=== PATIENT | female | born 2000 | race African-American/Black ===

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

== ENCOUNTER 2020-03-27 14:00 | Observation (INO) | payer OTHER ==
[2017-06-22 15:01] VITALS: BP 114/76
[~2020-03-27] VITALS: Ht 172.7 cm; Wt 77.9 kg
[~2020-03-27 14:00] MED LIST changes: +CEPH-264 PO
[2020-03-27] MEDS ORDERED: IV RINGERS,LACTATED 1000ML 1,000 ML IV SCH (14:30)
--- NOTE | 2020-03-27 16:18 | RAD ---
EXAM: biophysical profile. HISTORY: PAULA and size assessment. TECHNIQUE: Sonographic imaging of a gravid uterus was performed. COMPARISON: None. FINDINGS: There is a single intrauterine fetus in cephalic presentation with a normal heart rate of 1 43 bpm. There is normal body motion, breathing motion and tone and there is a normal amni otic fluid index of 10.3 cm. This corresponds with a biophysical profile of 8/8. The cervix is closed and measures 3.2 cm in length. The anatomy is not formally assessed on this exam. The estimate d gestational age based on LMP is 37 weeks and 6 days. IMPRESSION: 1. Single intrauterine fetus in cephalic presentation with a normal heart rate and normal biophysical profile 8/8. 2. Estimated gestational age based on LMP of 37 weeks and 6 days. The anatomy is not formally a ssessed on this exam. Electronically signed by: Karla Sepulveda MD (03/27/2020 4:15 PM) [id number]
== END 2020-03-27 16:36 | disposition home or self-care (01) ==
LOC: 3 SO LND 14:00
PROVIDERS: ADMIT Obstetrics & Gynecology; ATTEND Obstetrics & Gynecology
DX: Z34.83 Encounter for supervision of other normal pregnancy, third trimester (principal); Z3A.40 40 weeks gestation of pregnancy
CPT/HCPCS: 59025; 76819; G0378; G0379

== ENCOUNTER 2020-04-02 19:09 | Inpatient (IN) | payer OTHER ==
[~2020-04-02] VITALS: Ht 172.7 cm; Wt 77.3 kg
[2020-04-02] MEDS ORDERED: CITRIC ACID/SODIUM CITRATE 30 ML SOLUTION. PO PRN (19:30)
[2020-04-02] MEDS ORDERED: IV RINGERS,LACTATED 1000ML 1,000 ML IV SCH (19:30)
[2020-04-02] MEDS ORDERED: TERBUTALINE 1 MG/ML VIAL. SQ PRN (19:30)
[2020-04-02] MEDS ORDERED: DINOPROSTONE 10 MG SUPP.VAG VG ONE (19:30)
[2020-04-02] MEDS ORDERED: fentaNYL PF VIAL 100 MCG/2 ML VIAL IVP PRN (19:30)
[2020-04-02] MEDS ORDERED: ACETAMINOPHEN 325 MG TABLET. PO PRN (19:30)
[2020-04-02] MEDS ORDERED: IBUPROFEN 400 MG TABLET. PO PRN (19:30)
[2020-04-02] MEDS ORDERED: LIDOCAINE 1% PF 30 ML VIAL. INJ PRN (19:30)
[2020-04-02] MEDS ORDERED: ONDANSETRON PF 4 MG/2 ML VIAL. IVP PRN (19:30)
[2020-04-02] MEDS ORDERED: OXYTOCIN 30 UNIT/500 ML PREMIX 500 ML IV PRN (19:30)
[2020-04-02] MEDS ORDERED: 0.9 % SODIUM CHLORIDE 10 ML DISP.SYRIN. IV PRN (19:30)
[2020-04-02 19:45] LABS: BILIRUBIN,URINE NEGATIVE (NEG); CLARITY,URINE CLEAR; COLOR,URINE YELLOW; NITRITE,URINE NEGATIVE (NEG); PH,URINE 7.5 (<5.0-8.0); PROTEIN,URINE NEGATIVE (NEG-TRACE); UROBILINOGEN,URINE 0.2 mg/dL (0.2 mg/dL)
[2020-04-02 20:17] LABS: BASO # 0.1 x10^3/uL (0.0-0.2); BASO % 1 % (0-3); EOS # 0.1 x10^3/uL (0.0-0.7); EOS % 1 % (0-3); HEMATOCRIT 32.6 % (36.0-47.0); HEMOGLOBIN 10.7 g/dL (12.0-15.5); LYMPH # 1.8 x10^3/uL (1.0-4.8); LYMPH % 16 % (24-48); MEAN CORPUSCULAR HEMOGLOBIN 27 pg (25-35); MEAN CORPUSCULAR HGB CONC 33 g/dL (31-37); MEAN CORPUSCULAR VOLUME 83 fL (79-100); MONO # 0.9 x10^3/uL (0.0-1.1); MONO % 8 % (0-9); NEUT # 8.6 x10^3/uL (1.8-7.7); NEUT % 75 % (31-73); PLATELET COUNT 224 x10^3/uL (140-400); RED BLOOD COUNT 3.96 x10^6/uL (3.50-5.40); RED CELL DISTRIBUTION WIDTH 16.6 % (11.5-14.5); WHITE BLOOD COUNT 11.4 x10^3/uL (4.0-11.0)
[2020-04-02 20:18] LABS: BACTERIA,URINE FEW /HPF (0-FEW); RBC,URINE RARE /HPF (0-2)
[2020-04-03] MEDS: fentaNYL PF VIAL 100 MCG/2 ML VIAL IVP PRN ×2 (03:29→05:09)
[2020-04-03] MEDS ORDERED: OXYTOCIN PREMIX 30 UNIT/500 ML NS BAG. IV ONE (06:00)
[2020-04-03] MEDS ORDERED: ROPIVacaine 0.2% PF 10 ML VIAL. ONE ×2 (06:20→06:30)
[2020-04-03] MEDS ORDERED: L&D EPIDURAL SYRINGE 50 ML ONE (06:20)
[2020-04-03] MEDS ORDERED: L&D EPIDURAL 50 ML SYRINGE. ONE (06:30)
--- NOTE | 2020-04-03 06:55 | PDOC1 ---
OB - History Hx of Present Care: Good Care Ultrasounds: Normal mid trimester US Obstetrical Complications: None Medical Complications: None Past Family/Social History * Past Medical, Surgical, Family and Obstetric Histories reviewed from chart. Rubella: Immune RPR/VDRL: Negative GBS Status: Positive HBsAG: Negative OB - Chief Complaint & HPI Date of Admission: Date of Admission: Apr 02, 2020 at 19:09 Chief Complaint/History : 2 Para: 1 EGA: 41 Reason for admission: induction of labor Indication for induction: post dates Admission Nurse Assessment Rev: Yes OB - Admission Exam Physical Exam Vitals: VS - Last 72 Hours, by Label Date Time Temp Pulse Resp B/P (MAP) Pulse Ox O2 Delivery O2 Flow Rate FiO2 04/03/20 05:09 20 Room Air 04/03/20 03:29 22 Room Air HEENT: Normal Heart: Regular Rate Lungs: Clear, Equal Abdomen: Gravid, Non tender, Soft Extremities: Edema Reflexes: Normal Effacement: 75% Membranes: Intact Amniotic Fluid: Meconium Heart Rate: Normal Accelerations: Accelerations Present Short Term Variability: Present Contractions on Admission: None Intensity: Mild Text A: 41 wks IUP GBS positive IOL post dates P: Admit IOL cervidil, then pitocin in am. Start Pen G prophylaxis with pitocin. SUSY BHATT Jr, MD Apr 03, 2020 06:55
[2020-04-03] MEDS ORDERED: PENICILLIN G K 5,000,000 UNIT in IV DEXTROSE 5% 100ML 100 ML IV ONE (07:00)
[2020-04-03] MEDS ORDERED: OXYTOCIN 30 UNIT/500 ML PREMIX 500 ML IV PRN ×2 (07:00→09:15)
--- NOTE | 2020-04-03 09:02 | PDOC ---
VAGINAL DELIVERY DATE DATE: 04/03/20 TIME: 09:01 : 2 Para: 2 EGA: 41 VAGINAL DELIVERY: VTX VACCUM ASSISTED: No PLACENTA: Spontaneous 8/9 SEX: Male WEIGHT Weight [ pending ] Nuchal Cord: No Amniotic Fluid: Clear PAIN: Epidural EPISIOTOMY: No EXTENSION: No EBL 300 ml COMPLICATIONS none CONDITION pt. stable Signs of Intrauterine Infectio: None Shoulder Dystocia: No SUSY BHATT Jr, MD Apr 03, 2020 09:02
[2020-04-03] MEDS ORDERED: ZOLPIDEM 5 MG TABLET. PO PRN (09:15)
[2020-04-03] MEDS ORDERED: oxyCODONE/APAP 5/325 1 TAB TABLET PO PRN (09:15)
[2020-04-03] MEDS ORDERED: MAG HYDROX/ALUMINUM HYD/SIMETH 30 ML ORAL.SUSP PO PRN (09:15)
[2020-04-03] MEDS ORDERED: diphenhydrAMINE HCL 25 MG CAPSULE PO PRN (09:15)
[2020-04-03] MEDS ORDERED: TDaP (Adacel) per PROTOCOL. MC PRN (09:15)
[2020-04-03] MEDS ORDERED: BENZOCAINE 20% TOPICAL AEROSOL SPRAY 57GM CAN. TP PRN (09:15)
[2020-04-03] MEDS ORDERED: HYDROCORTISONE 1% TOPICAL OINTMENT 30GM TUBE. TP PRN (09:15)
[2020-04-03] MEDS ORDERED: MMR per PROTOCOL. MC PRN (09:15)
[2020-04-03] MEDS ORDERED: PHENYLEPH/MINERAL OIL/PETROLAT RECTAL OINTMENT TUBE. RC PRN (09:15)
[2020-04-03] MEDS ORDERED: ACETAMINOPHEN 325 MG TABLET. PO PRN (09:15)
[2020-04-03] MEDS ORDERED: SIMETHICONE 80 MG TAB.CHEW PO PRN (09:15)
[2020-04-03] MEDS ORDERED: 0.9 % SODIUM CHLORIDE 10 ML DISP.SYRIN. IV PRN (09:15)
[2020-04-03] MEDS ORDERED: MAGNESIUM HYDROXIDE 2,400 MG/30 ML ORAL.SUSP. PO PRN (09:15)
[2020-04-03] MEDS: IBUPROFEN 400 MG TABLET. PO PRN ×2 (10:07→17:11)
[2020-04-03] MEDS ORDERED: miSOPROStol 200 MCG TABLET. ONE ×2 (10:21→10:30)
[2020-04-03] MEDS ORDERED: PENICILLIN G K 2,500,000 UNIT in IV DEXTROSE 5% 50 ML IV SCH (11:00)
[2020-04-03 11:09] LABS: HEMATOCRIT 33.7 % (36.0-47.0); HEMOGLOBIN 11.2 g/dL (12.0-15.5); RED BLOOD COUNT 4.05 x10^6/uL (3.50-5.40); RED CELL DISTRIBUTION WIDTH 16.6 % (11.5-14.5); WHITE BLOOD COUNT 15.2 x10^3/uL (4.0-11.0)
[2020-04-03 15:00] VITALS: BP 125/70
[2020-04-03 18:11] VITALS: BP 119/59
[2020-04-03] MEDS: DOCUSATE SODIUM 100 MG CAPSULE. PO PRN (22:35)
[2020-04-03 22:48] VITALS: BP 102/55
[2020-04-04 02:51] VITALS: BP 118/73
[2020-04-04 06:10] VITALS: BP 97/48
[2020-04-04 06:54] LABS: BASO % 0 % (0-3); EOS % 1 % (0-3); HEMATOCRIT 31.7 % (36.0-47.0); HEMOGLOBIN 10.4 g/dL (12.0-15.5); LYMPH # 1.9 x10^3/uL (1.0-4.8); LYMPH % 19 % (24-48); MEAN CORPUSCULAR HEMOGLOBIN 27 pg (25-35); MEAN CORPUSCULAR HGB CONC 33 g/dL (31-37); MEAN CORPUSCULAR VOLUME 83 fL (79-100); MONO # 0.6 x10^3/uL (0.0-1.1); MONO % 6 % (0-9); NEUT # 7.1 x10^3/uL (1.8-7.7); NEUT % 74 % (31-73); PLATELET COUNT 205 x10^3/uL (140-400); RED BLOOD COUNT 3.84 x10^6/uL (3.50-5.40); RED CELL DISTRIBUTION WIDTH 16.7 % (11.5-14.5); WHITE BLOOD COUNT 9.7 x10^3/uL (4.0-11.0)
[2020-04-04] MEDS: FERROUS SULFATE 325 MG TABLET. PO SCH ×2 (08:00→17:00)
[2020-04-04] MEDS: MULTIVITAMIN with MINERAL TABLET. PO SCH (08:00)
[2020-04-04] MEDS: DOCUSATE SODIUM 100 MG CAPSULE. PO PRN (08:00)
[2020-04-04] MEDS: IBUPROFEN 400 MG TABLET. PO PRN ×2 (08:01→20:51)
[2020-04-04 10:05] VITALS: BP 93/51
[2020-04-04 16:45] VITALS: BP 114/68
--- NOTE | 2020-04-04 17:37 | PDOC ---
OB Progress Note Date of Service 04/04/20 Time of Evaluation 1735 Notes Pt. feeling well. No complaints. Lab Laboratory Tests Test 04/02/20 19:20 04/02/20 19:30 04/02/20 19:45 04/03/20 10:55 White Blood Count 11.4 x10^3/uL (4.0-11.0) 15.2 x10^3/uL (4.0-11.0) Red Blood Count 3.96 x10^6/uL (3.50-5.40) 4.05 x10^6/uL (3.50-5.40) Hemoglobin 10.7 g/dL (12.0-15.5) 11.2 g/dL (12.0-15.5) Hematocrit 32.6 % (36.0-47.0) 33.7 % (36.0-47.0) Mean Corpuscular Volume 83 fL (79-100) 83 fL (79-100) Mean Corpuscular Hemoglobin 27 pg (25-35) 28 pg (25-35) Mean Corpuscular Hemoglobin Concent 33 g/dL (31-37) 33 g/dL (31-37) Red Cell Distribution Width 16.6 % (11.5-14.5) 16.6 % (11.5-14.5) Platelet Count 224 x10^3/uL (140-400) 214 x10^3/uL (140-400) Neutrophils (%) (Auto) 75 % (31-73) Lymphocytes (%) (Auto) 16 % (24-48) Monocytes (%) (Auto) 8 % (0-9) Eosinophils (%) (Auto) 1 % (0-3) Basophils (%) (Auto) 1 % (0-3) Neutrophils # (Auto) 8.6 x10^3/uL (1.8-7.7) Lymphocytes # (Auto) 1.8 x10^3/uL (1.0-4.8) Monocytes # (Auto) 0.9 x10^3/uL (0.0-1.1) Eosinophils # (Auto) 0.1 x10^3/uL (0.0-0.7) Basophils # (Auto) 0.1 x10^3/uL (0.0-0.2) Treponema pallidum Antibody Nonreactive (Nonreactive) Coronavirus (PCR) Not detected (Not Detected) Urine Collection Type Unknown Urine Color Yellow Urine Clarity Clear Urine pH 7.5 (<5.0-8.0) Urine Specific Burna 1.010 (1.000-1.030) Urine Protein Negative mg/dL (NEG-TRACE) Urine Glucose (UA) Negative mg/dL (NEG) Urine Ketones (Stick) Negative mg/dL (NEG) Urine Blood Negative (NEG) Urine Nitrite Negative (NEG) Urine Bilirubin Negative (NEG) Urine Urobilinogen Dipstick 0.2 mg/dL (0.2 mg/dL) Urine Leukocyte Esterase Large (NEG) Urine RBC Rare /HPF (0-2) Urine WBC 11-20 /HPF (0-4) Urine Squamous Epithelial Cells Many /LPF Urine Bacteria Few /HPF (0-FEW) Urine Mucus Slight /LPF SARS-CoV-2 Antigen (Rapid) Negative (NEGATIVE) Test 04/04/20 06:25 White Blood Count 9.7 x10^3/uL (4.0-11.0) Red Blood Count 3.84 x10^6/uL (3.50-5.40) Hemoglobin 10.4 g/dL (12.0-15.5) Hematocrit 31.7 % (36.0-47.0) Mean Corpuscular Volume 83 fL (79-100) Mean Corpuscular Hemoglobin 27 pg (25-35) Mean Corpuscular Hemoglobin Concent 33 g/dL (31-37) Red Cell Distribution Width 16.7 % (11.5-14.5) Platelet Count 205 x10^3/uL (140-400) Neutrophils (%) (Auto) 74 % (31-73) Lymphocytes (%) (Auto) 19 % (24-48) Monocytes (%) (Auto) 6 % (0-9) Eosinophils (%) (Auto) 1 % (0-3) Basophils (%) (Auto) 0 % (0-3) Neutrophils # (Auto) 7.1 x10^3/uL (1.8-7.7) Lymphocytes # (Auto) 1.9 x10^3/uL (1.0-4.8) Monocytes # (Auto) 0.6 x10^3/uL (0.0-1.1) Eosinophils # (Auto) 0.0 x10^3/uL (0.0-0.7) Basophils # (Auto) 0.0 x10^3/uL (0.0-0.2) Laboratory Tests Test 04/04/20 06:25 White Blood Count 9.7 x10^3/uL (4.0-11.0) Red Blood Count 3.84 x10^6/uL (3.50-5.40) Hemoglobin 10.4 g/dL (12.0-15.5) Hematocrit 31.7 % (36.0-47.0) Mean Corpuscular Volume 83 fL (79-100) Mean Corpuscular Hemoglobin 27 pg (25-35) Mean Corpuscular Hemoglobin Concent 33 g/dL (31-37) Red Cell Distribution Width 16.7 % (11.5-14.5) Platelet Count 205 x10^3/uL (140-400) Neutrophils (%) (Auto) 74 % (31-73) Lymphocytes (%) (Auto) 19 % (24-48) Monocytes (%) (Auto) 6 % (0-9) Eosinophils (%) (Auto) 1 % (0-3) Basophils (%) (Auto) 0 % (0-3) Neutrophils # (Auto) 7.1 x10^3/uL (1.8-7.7) Lymphocytes # (Auto) 1.9 x10^3/uL (1.0-4.8) Monocytes # (Auto) 0.6 x10^3/uL (0.0-1.1) Eosinophils # (Auto) 0.0 x10^3/uL (0.0-0.7) Basophils # (Auto) 0.0 x10^3/uL (0.0-0.2) Medications Current Medications Sodium Chloride (Normal Saline Flush) 3 ml QSHIFT PRN IV AFTER MEDS AND BLOOD DRAWS; Start 04/02/20 at 19:30 Ringer's Solution 1,000 ml @ 125 mls/hr Q8H IV Last administered on 04/02/20at 20:10; Start 04/02/20 at 19:30 Fentanyl Citrate (Fentanyl 2ml Vial) 50 mcg PRN Q30MIN PRN IVP Mild to moderate pain; Start 04/02/20 at 19:30 Fentanyl Citrate (Fentanyl 2ml Vial) 100 mcg PRN Q30MIN PRN IVP Severe pain Last administered on 04/03/20at 05:09; Start 04/02/20 at 19:30 Acetaminophen (Tylenol) 1,000 mg PRN Q6HRS PRN PO MILD PAIN / TEMP > 100.3'F; Start 04/02/20 at 19:30; Stop 04/03/20 at 09:08; Status DC Ondansetron HCl (Zofran) 4 mg PRN Q4HRS PRN IVP NAUSEA/VOMITING Last administered on 04/03/20at 06:06; Start 04/02/20 at 19:30 Citric Acid/ Sodium Citrate (Bicitra) 30 ml 1X PRN PRN PO DYSPEPSIA; Start 04/02/20 at 19:30; Stop 04/03/20 at 19:29; Status DC Terbutaline Sulfate (Brethine) 0.25 mg 1X PRN PRN SQ SEE COMMENTS; Start 04/02/20 at 19:30; Stop 04/03/20 at 19:29; Status DC Lidocaine HCl (Xylocaine 1% Pf 30ml Vial) 30 ml 1X PRN PRN INJ SEE COMMENTS; Start 04/02/20 at 19:30; Stop 04/04/20 at 19:29 Oxytocin 500 ml @ 0 mls/hr CONT PRN IV SEE I/O RECORD Last administered on 04/03/20at 10:08; Start 04/03/20 at 07:00 Oxytocin 500 ml @ 0 mls/hr CONT PRN PRN IV Post delivery bleeding; Start 04/02/20 at 19:30 Ibuprofen (Motrin) 800 mg PRN Q6HRS PRN PO PAIN; Start 04/02/20 at 19:30; Stop 04/04/20 at 09:21; Status DC Penicillin G Potassium [id number] unit/Dextrose 100 ml @ 100 mls/hr 1X ONCE IV Last administered on 04/03/20at 06:14; Start 04/03/20 at 07:00; Stop 04/03/20 at 07:59; Status DC Penicillin G Potassium [id number] unit/Dextrose 50 ml @ 100 mls/hr Q4H IV ; Start 04/03/20 at 11:00; Stop 04/04/20 at 09:22; Status DC Dinoprostone (Cervidil) 10 mg 1X ONCE VG Last administered on 04/02/20at 20:29; Start 04/02/20 at 19:30; Stop 04/02/20 at 19:31; Status DC Ropivacaine (Naropin 0.2%) 10 ml STK-MED ONCE .ROUTE ; Start 04/03/20 at 06:20; Stop 04/03/20 at 06:20; Status DC Fentanyl Citrate 50 ml @ As Directed STK-MED ONCE .ROUTE ; Start 04/03/20 at 06:20; Stop 04/03/20 at 06:21; Status DC Fentanyl Citrate (Ybyiyfkc-Pivxd-YB 3 Mcg-0.1%) 50 ml STK-MED ONCE .ROUTE ; Start 04/03/20 at 06:30; Stop 04/03/20 at 08:53; Status DC Ropivacaine (Naropin 0.2%) 10 ml STK-MED ONCE .ROUTE ; Start 04/03/20 at 06:30; Stop 04/03/20 at 08:53; Status DC Sodium Chloride (Normal Saline Flush) 10 ml QSHIFT PRN IV AFTER MEDS AND BLOOD DRAWS; Start 04/03/20 at 09:15 Oxytocin 500 ml @ 62.5 mls/hr CONT PRN IV SEE I/O RECORD; Start 04/03/20 at 09:15; Stop 04/03/20 at 17:14; Status DC Acetaminophen (Tylenol) 650 mg PRN Q6HRS PRN PO MILD PAIN / TEMP > 100.3'F Last administered on 04/03/20at 15:40; Start 04/03/20 at 09:15 Ibuprofen (Motrin) 800 mg PRN Q8HRS PRN PO INFLAMMATION/PAIN PREVENTION Last administered on 04/04/20at 08:01; Start 04/03/20 at 09:15 Docusate Sodium (Colace) 100 mg PRN BID PRN PO CONSTIPATION Last administered on 04/04/20at 08:00; Start 04/03/20 at 09:15 Magnesium Hydroxide (Milk Of Magnesia) 2,400 mg PRN DAILY PRN PO CONSTIPATION; Start 04/03/20 at 09:15 Al Hydroxide/Mg Hydroxide (Mylanta Plus Xs) 30 ml PRN Q4HRS PRN PO HEARTBURN / GAS; Start 04/03/20 at 09:15 Simethicone (Gas-X) 80 mg PRN AFTMEALHC PRN PO GAS / BLOATING; Start 04/03/20 at 09:15 Diphenhydramine HCl (Benadryl) 25 mg PRN Q6HRS PRN PO ITCHING; Start 04/03/20 at 09:15 Benzocaine (Americaine) 1 spray PRN QID PRN TP TOPICAL PAIN; Start 04/03/20 at 09:15 Phenyleph/Shark Oil/Min Oil/Petrol (Preparation H) 1 alaina PRN QID PRN RC RECTAL PAIN; Start 04/03/20 at 09:15 Hydrocortisone (Cortaid) 1 alaina PRN QID PRN TP PERINEAL PAIN; Start 04/03/20 at 09:15 Ferrous Sulfate (Feosol) 325 mg BIDWMEALS PO ; Start 04/04/20 at 08:00 Zolpidem Tartrate (Ambien) 5 mg PRN QHS PRN PO INSOMNIA, MAY REPEAT X1; Start 04/03/20 at 09:15 Info (Do NOT chart on this placeholder) 1 ea 1X PRN PRN MC SEE COMMENTS; Start 04/03/20 at 09:15 Info (Do NOT chart on this placeholder) 1 ea 1X PRN PRN MC SEE COMMENTS; Start 04/03/20 at 09:15 Oxycodone/ Acetaminophen (Percocet 5/325) 2 tab PRN Q4HRS PRN PO MODERATE PAIN, SEVERE PAIN Last administered on 04/03/20at 17:11; Start 04/03/20 at 09:15 Multivitamins (Thera M Plus) 1 tab DAILY PO Last administered on 04/04/20at 08:00; Start 04/04/20 at 09:00 Oxytocin (Oxytocin Premix Infusion) 30 unit STK-MED ONCE IV ; Start 04/03/20 at 06:00; Stop 04/03/20 at 09:15; Status DC Misoprostol (Cytotec 200mcg Tab) 200 mcg STK-MED ONCE .ROUTE ; Start 04/03/20 at 10:21; Stop 04/03/20 at 10:21; Status DC Misoprostol (Cytotec 200mcg Tab) 800 mcg STK-MED ONCE .ROUTE ; Start 04/03/20 at 10:30; Stop 04/04/20 at 12:19; Status DC Active Scripts Active Keflex (Cephalexin) 500 Mg Capsule 1 Cap PO TID Feosol (Ferrous Sulfate) 325 Mg Tablet 325 Mg PO BIDWMEALS 30 Days Ibuprofen 800 Mg Tablet 800 Mg PO Q8HRS 30 Days Plus Iron Tablet (Pnv With Ca,No.72/Iron,Carb/Fa) 1 Each Tablet 1 Tab PO DAILY Zofran (Ondansetron Hcl) 4 Mg Tablet 1 Tab PO Q8HRS PRN Amoxicillin 500 Mg Tablet 1 Tab PO TID Exam Abd: soft, non tender, fundus firm Assessment PPD#1 s/p Plan of Care: Continue current Tx, Mgmt SUSY BHATT Jr, MD Apr 04, 2020 17:37
[2020-04-04 20:00] VITALS: BP 116/56
[2020-04-05 02:00] VITALS: BP 109/59
[2020-04-05 07:00] VITALS: BP 97/60
[2020-04-05] MEDS: MULTIVITAMIN with MINERAL TABLET. PO SCH (07:25)
[2020-04-05] MEDS: IBUPROFEN 400 MG TABLET. PO PRN (07:26)
[2020-04-05] MEDS: FERROUS SULFATE 325 MG TABLET. PO SCH (07:26)
--- NOTE | 2020-04-05 10:45 | PDOC3 ---
OB DISCHARGE SUMMARY DATE OF ADMISSION: 04/02/20 DATE OF DISCHARGE: 04/05/20 REASON FOR ADMISSION: Induction of labor INTRAPARTUM PROCEDURES: Spontanous Vag Deliv DISCHARGE DIAGNOSIS: Term Delivered DISCHARGE INFORMATION: Activity (ad puja), Diet (regular), Instructions (pelvic rest x 6 wks) HOSPITAL COURSE Term gestation delivered vaginally without complications. SUSY BHATT Jr, MD Apr 05, 2020 10:45
[2020-04-05] MEDS ORDERED: IBUP-1027 PO (10:46)
--- NOTE | 2020-04-05 10:46 | DISCH ---
DISCHARGE INSTRUCTIONS Condition on Discharge Condition on Discharge: Stable Activity After Discharge Activity Instructions for Disc: Activity as tolerated Lifting Instructions after Dis: No heavy lifting Driving Instructions after Dis: Do not drive today Diet after Discharge Diet after Discharge: Regular Contacting the DRKatina after DC Call your doctor for: Concerns you may have Follow-Up Follow up with: Dr. Sen in 6 wks SUSY SEN Jr, MD Apr 05, 2020 10:46
[2020-04-05 11:00] VITALS: BP 107/55
[2020-04-05 14:00] VITALS: BP 99/60
--- NOTE | 2020-04-05 14:39 | NUR ---
Patient left with her grandpa around 1430. Car seat education performed at dismissal by this nurse and the nursery nurse. Education given by both nurses on patients discharge and her baby. No concerns noted at discharge. Script given for ibuprofen prior to dismissal. Denied pain or pain medication at discharge.
== END 2020-04-05 14:40 | disposition home or self-care (01) | DRG 807 ==
LOC: 3 SO LND 19:09 → 3 NORTH 04-03 15:00
PROVIDERS: ADMIT Obstetrics & Gynecology; ATTEND Obstetrics & Gynecology
PROC: 10E0XZZ Delivery of Products of Conception, External Approach (ICD-10-PCS; principal; 2020-04-03)
PROC: 3E0P7VZ Introduction of Hormone into Female Reproductive, Via Natural or Artificial Opening (ICD-10-PCS; 2020-04-03)
PROC: 3E0R3BZ Introduction of Anesthetic Agent into Spinal Canal, Percutaneous Approach (ICD-10-PCS; 2020-04-03)
PROC: 00HU33Z Insertion of Infusion Device into Spinal Canal, Percutaneous Approach (ICD-10-PCS; 2020-04-03)
DX: O48.0 Post-term pregnancy (principal); Z37.0 Single live birth; O99.824 Streptococcus B carrier state complicating childbirth; O77.0 Labor and delivery complicated by meconium in amniotic fluid; Z3A.41 41 weeks gestation of pregnancy
CPT/HCPCS: 36415; 81001; 85025; 85027; 86592; 86850; 86900; 86901; 87086; 87426; J2405; J2540; J2590; J2795; J3010; J7060; J7120; U0003; G0378

== ENCOUNTER 2021-02-26 05:45 | Emergency (ER) | payer OTHER ==
[~2021-02-26] VITALS: Ht 172.7 cm; Wt 54.0 kg
[~2021-02-26 05:45] MED LIST changes: +IBUP-1027 PO
--- NOTE | 2021-02-26 06:18 | PHYS DOC ---
Past Medical History Past Medical History: No Pertinent History Past Surgical History: No Surgical History Smoking Status: Current Some Day Smoker Alcohol Use: None Drug Use: None General Adult EDM: Chief Complaint: ABDOMINAL PAIN HPI: HPI: Patient is a 20 year old female here who presents with mid pelvic abdominal pain, which has been present for the past 2 to 3 days. She reports some nausea and vomiting. She reports "constipation" but has had a bowel movement within the last 24 hours. She denies urinary symptoms. She denies vaginal discharge or bleeding. Last menstrual period occurred in mid to late December. test is positive here. She was unaware of this. She had last had intercourse in January, reportedly took a Plan B pill thereafter. This would be her third . She has 2 living children born by spontaneous vaginal delivery, without reported complications. She reports no history of PID. She does report having a history of previous chlamydia many years ago. She denies fevers or chills. No focal right lower quadrant pain or left lower quadrant pain. No previous abdominal surgeries. Review of Systems: Review of Systems: Constitutional: Denies fever or chills. [] HENT: Denies nasal congestion or sore throat. [] Respiratory: Denies cough or shortness of breath. [] Cardiovascular: Denies chest pain or edema. [] GI: Abdominal pain, nausea, vomiting. Pelvic pain. : Denies dysuria. Denies vaginal discharge or bleeding. Denies other urinary symptoms. Mid pelvic pain reported. Musculoskeletal: Denies back pain or joint pain. [] Integument: Denies rash. [] Neurologic: Denies headache, focal weakness or sensory changes. [] Psychiatric: Denies depression or anxiety. [] Heart Score: C/O Chest Pain: No Risk Factors: Risk Factors: DM, Current or recent (<one month) smoker, HTN, HLP, family history of CAD, obesity. Risk Scores: Score 0 - 3: 2.5% MACE over next 6 weeks - Discharge Home Score 4 - 6: 20.3% MACE over next 6 weeks - Admit for Clinical Observation Score 7 - 10: 72.7% MACE over next 6 weeks - Early Invasive Strategies Allergies: Allergies: Allergies Coded Allergies Type Severity Reaction Last Updated Verified No Known Drug Allergies 03/21/16 No Physical Exam: PE: Constitutional: Well developed, well nourished, no acute distress, non-toxic appearance. [] HENT: Normocephalic, atraumatic Eyes: Sclera clear, Conjunctival clear Neck: Trachea midline Cardiovascular:Heart rate regular rhythm, was 2 radial and posterior tibial pulses bilaterally Lungs & Thorax: Bilateral breath sounds clear to auscultation [] Abdomen: Abdomen is soft, nondistended, no objective tenderness to palpation. N ormal bowel sounds. No palpable mass organomegaly. : No external lesions. Moderate white discharge. Cervix is clear, no erythema. No purulent dishcarge. No bleeding. No CMT. No tenderness on bimanual exam. Skin: Warm, dry, no erythema, no rash. [] Back: No tenderness, no CVA tenderness. [] Extremities: No tenderness, no cyanosis, no clubbing, ROM intact, no edema. [] Neurologic: Alert and oriented X 3, normal motor function, normal sensory function, no focal deficits noted. [] Psychologic: She is tearful, but she is pleasant and cooperative. Current Patient Data: Labs: Laboratory Tests Test 02/26/21 06:06 POC Urine HCG, Qualitative Hcg positive (Negative) Vital Signs: Vital Signs Date Time Temp Pulse Resp B/P (MAP) Pulse Ox O2 Delivery O2 Flow Rate FiO2 02/26/21 06:08 98.1 85 18 129/63 (85) 94 Room Air 98.1 EKG: EKG: [] Radiology/Procedures: Radiology/Procedures: IMAGING REPORT Signed PATIENT: THAI PEREIRA ACCOUNT: [id number] : 2000 LOCATION: ER AGE: 20 SEX: F EXAM STATUS: REG ER ORD. PHYSICIAN: FLOR CLEMONS DO REASON: pelvic pain, +UCG PROCEDURE: OB < 14 WKS INDICATION: Reason: pelvic pain, +UCG / Spl. Instructions: / History: COMPARISON: None available TECHNIQUE: Grayscale and color ultrasound images uterus and adnexa. Transvaginal images are obtained. FINDINGS: Uterus: 98 x 61 x 58 mm. Intrauterine gestational sac is seen within the irregular appearance. There is a pole which measures 4 mm with heartbeat of 97. Estimated gestational age is 6 weeks and 1 day There is some hypoechoic material adjacent to the gestational sac. Could be debris within the endometrial stripe or subchorionic hematoma measuring 13 x 5 mm. Right Ovary: 34 x 32 x 30 mm. Left Ovary: 22 x 17 x 12 mm. Vascular flow identified to bilateral ovaries. IMPRESSION: * Intrauterine gestational sac is identified with irregular appearance. There is a pole seen within with estimated gestational age of 6 weeks and 1 day with a borderline low heart rate of 97. There is also a hypoechoic region seen adjacent to the gestational sac which could be secondary to some debris within the endometrial stripe or subchorionic hematoma. Electronically signed by: John De La Fuente MD (02/26/2021 7:33 AM) [id number] DICTATED and SIGNED BY: JOHN DE LA FUENTE MD DATE: 02/26/21 [id number] 0 Course & Med Decision Making: Course & Med Decision Making Pertinent Labs and Imaging studies reviewed. (See chart for details) I discussed the findings, differential diagnosis and plan of care with her. She does have a confirmed IUP, just over 6 weeks, but there is bradycardia. I explained that this may be regional sales representative of threatened . She is currently not bleeding. She has an OB with whom she can follow-up. I recommend she call them later today to establish care, and she will require repeat/serial exams, likely repeat ultrasound. I recommend adhering to pelvic rest. She will be treated for bacterial vaginosis. She understands that GC chlamydia cultures are pending. She is comfortable with plan for discharge home. Strict return precautions are given. Milagroson Disclaimer: Aristeo Disclaimer: This electronic medical record was generated, in whole or in part, using a voice recognition dictation system. Departure Departure Impression: Primary Impression: Pelvic pain Additional Impressions: Intrauterine Threatened Bacterial vaginosis Disposition: HOME / SELF CARE / HOMELESS Condition: STABLE Referrals: NO PCP (PCP) Patient Instructions: Abdominal Pain During , Bacterial Vaginosis, Threatened Miscarriage Additional Instructions: Use the medications as directed. Please adhere to pelvic rest, no intercourse, no tampons. Return to the ER for uncontrolled vomiting, dehydration, temperature 100.4 or higher, more severe or uncontrolled pain, if you develop any heavy bleeding with passing large amounts of tissue or clots or for any other concerns. Please contact your OB doctor today to arrange for close follow-up. You do have a in your uterus, the baby's heart rate is lower than should be expected for 6-week . This could indicate that you may have a miscarriage, however you will need to have a repeat ultrasound and exam by your doctor to confirm this. Scripts Clindamycin Hcl (CLINDAMYCIN HCL) 300 Mg Capsule 1 CAP PO BID for 7 Days, #14 CAP Prov: FLOR CLEMONS DO 02/26/21 Ondansetron Hcl (ZOFRAN) 4 Mg Tablet 4 MG PO PRN TID PRN for VOMITING, #20 TAB nausea/vomiting Prov: FLOR CLEMONS DO 02/26/21 Hydrocodone Bit/Acetaminophen (HYDROCODONE-APAP 5-325 ) 1 Tab Tablet 1 TAB PO PRN Q6HRS PRN for PAIN, #15 TAB 0 Refills Prov: FLOR CLEMONS DO 02/26/21 FLOR CLEMONS DO Feb 26, 2021 06:18
[2021-02-26 06:40] LABS: BILIRUBIN,URINE SMALL (NEG); CLARITY,URINE CLEAR; COLOR,URINE RED; NITRITE,URINE NEGATIVE (NEG); PROTEIN,URINE 30 mg/dL (NEG-TRACE)
[2021-02-26 06:43] LABS: BASO % 0 % (0-3); EOS % 0 % (0-3); HEMATOCRIT 38.2 % (36.0-47.0); HEMOGLOBIN 12.6 g/dL (12.0-15.5); LYMPH # 0.8 x10^3/uL (1.0-4.8); LYMPH % 10 % (24-48); MEAN CORPUSCULAR HEMOGLOBIN 30 pg (25-35); MEAN CORPUSCULAR HGB CONC 33 g/dL (31-37); MEAN CORPUSCULAR VOLUME 90 fL (79-100); MONO # 0.5 x10^3/uL (0.0-1.1); MONO % 6 % (0-9); NEUT # 7.1 x10^3/uL (1.8-7.7); NEUT % 85 % (31-73); PLATELET COUNT 231 x10^3/uL (140-400); RED BLOOD COUNT 4.27 x10^6/uL (3.50-5.40); RED CELL DISTRIBUTION WIDTH 16.3 % (11.5-14.5); WHITE BLOOD COUNT 8.4 x10^3/uL (4.0-11.0)
[2021-02-26 06:53] LABS: CREATININE 0.7 mg/dL (0.6-1.0); GFR 127.8; POTASSIUM 3.5 mmol/L (3.5-5.1)
[2021-02-26 06:58] LABS: ALBUMIN/GLOBULIN RATIO 1.1 (1.0-1.7); TOTAL BILIRUBIN 1.1 mg/dL (0.2-1.0); TOTAL PROTEIN 7.6 g/dL (6.4-8.2)
[2021-02-26 06:58] LABS: BACTERIA,URINE FEW /HPF (0-FEW); RBC,URINE 0 /HPF (0-2)
[2021-02-26] MEDS ORDERED: ONDANSETRON PF 4 MG/2 ML VIAL. IVP ONE (07:00)
[2021-02-26] MEDS ORDERED: IV NORMAL SALINE 1000ML BAG 1,000 ML IV ONE (07:00)
--- NOTE | 2021-02-26 07:35 | RAD ---
INDICATION: Reason: pelvic pain, +UCG / Spl. Instructions: / History: COMPARISON: None available TECHNIQUE: Grayscale and color ultrasound images uterus and adnexa. Transvaginal images are obtained . FINDINGS: Uterus: 98 x 61 x 58 mm. Intrauterine gestational sac is seen within the irregular appearance. There is a pole which michelle sures 4 mm with heartbeat of 97. Estimated gestational age is 6 weeks and 1 day There is some hypoechoic material adjacent to the gestational sac. Could be debris within the endomet rial stripe or subchorionic hematoma measuring 13 x 5 mm. Right Ovary: 34 x 32 x 30 mm. Left Ovary: 22 x 17 x 12 mm. Vascular flow identified to bilateral ovaries. IMPRESSION: * Intrauterine gestational sac is identified with irregular appearance. There is a pole seen within with estimated gestational age of 6 weeks and 1 day with a borderline low heart rate of 97. Th ere is also a hypoechoic region seen adjacent to the gestational sac which could be secondary to some debris within the endometrial stripe or subchorionic hematoma. Electronically signed by: Lavell De La Fuente MD (02/26/2021 7:33 AM) [id number]
[2021-02-26] MEDS ORDERED: CLIN-94 PO (08:26)
[2021-02-26] MEDS ORDERED: HYDR-2761 PO (08:26)
[2021-02-26] MEDS ORDERED: ONDA4TAB7 PO (08:26)
[2021-02-26 08:35] VITALS: BP 111/67
[2021-02-28 08:19] LABS: GC PROBE Negative (Negative)
== END 2021-02-26 08:40 | disposition home or self-care (01) ==
LOC: ER 05:45
DX: O20.0 Threatened abortion (principal); Z3A.01 Less than 8 weeks gestation of pregnancy; N76.0 Acute vaginitis; B96.89 Other specified bacterial agents as the cause of diseases classified elsewhere; O99.331 Smoking (tobacco) complicating pregnancy, first trimester
CPT/HCPCS: 76801; 80053; 81001; 81025; 83690; 84702; 85025; 87086; 87491; 87591; 96361; 96374; 99284; J2405; J7030; Q0111

== ENCOUNTER 2021-03-01 00:37 | Emergency (ER) | payer OTHER ==
[~2021-03-01] VITALS: Ht 172.7 cm; Wt 54.5 kg
[~2021-03-01 00:37] MED LIST changes: +CLIN-94 PO; +HYDR-2761 PO
[2021-03-01] MEDS ORDERED: METOCLOPRAMIDE HCL 10 MG/2 ML VIAL. IVP ONE (02:15)
[2021-03-01] MEDS ORDERED: IV NORMAL SALINE 1000ML BAG 1,000 ML IV ONE (02:15)
[2021-03-01] MEDS ORDERED: PYRIDOXINE 100 MG/ML VIAL. IV ONE (02:15)
[2021-03-01] MEDS ORDERED: ONDANSETRON PF 4 MG/2 ML VIAL. IVP ONE (02:15)
--- NOTE | 2021-03-01 02:33 | PHYS DOC ---
Past Medical History Past Medical History: No Pertinent History Past Surgical History: No Surgical History Smoking Status: Never Smoker Alcohol Use: None Drug Use: None General Adult EDM: Chief Complaint: ABDOMINAL PAIN IN HPI: HPI: 20 yo (s/p 1st trimester D&C/EAB) with no significant past medical history, presents to the ED with complaints of suprapubic abdominal pain has been present since her prior ED visit on February 26. Patient reports her last menstrual period was January 122019. Was diagnosed with bacterial vaginosis but states she has not been able to keep any of her medication down (was rx flagyl, hydrocodone and zofran-it's not odt). H/o tx'ed chlamydia. Last sexual intercourse was in December and she took a plan B. No associated abnormal vaginal discharge, dysuria, hematuria or malodorous discharge. Review of Systems: Review of Systems: Constitutional: Denies fever or chills. [] Eyes: Denies change in visual acuity. [] HENT: Denies nasal congestion or sore throat. [] Respiratory: Denies cough or shortness of breath. [] Cardiovascular: Denies chest pain or edema. [] GI: Denies nausea, vomiting, bloody stools or diarrhea. [] : Denies dysuria or vaginal bleeding Musculoskeletal: Denies back pain or joint pain. [] Integument: Denies rash or diaphoresis Neurologic: Denies headache, focal weakness or sensory changes. [] Endocrine: Denies polyuria or polydipsia. [] Lymphatic: Denies swollen glands. [] Psychiatric: Denies depression or anxiety. [] Heart Score: C/O Chest Pain: No Risk Factors: Risk Factors: DM, Current or recent (<one month) smoker, HTN, HLP, family history of CAD, obesity. Risk Scores: Score 0 - 3: 2.5% MACE over next 6 weeks - Discharge Home Score 4 - 6: 20.3% MACE over next 6 weeks - Admit for Clinical Observation Score 7 - 10: 72.7% MACE over next 6 weeks - Early Invasive Strategies Current Medications: Current Medications Medications (Trade) Dose Ordered Sig/Kvng Start Time Stop Time Status Last Admin Dose Admin Metoclopramide HCl (Reglan Vial) 10 mg 1X ONCE 03/01/21 02:15 03/01/21 02:22 DC Ondansetron HCl (Zofran) 4 mg 1X ONCE 03/01/21 02:15 03/01/21 02:22 DC Pyridoxine HCl (Vitamin B6) 100 mg 1X ONCE 03/01/21 02:15 03/01/21 02:24 DC Sodium Chloride 1,000 ml @ 1,000 mls/hr 1X ONCE 03/01/21 02:15 03/01/21 03:14 Allergies: Allergies: Allergies Coded Allergies Type Severity Reaction Last Updated Verified No Known Drug Allergies 02/26/21 No Physical Exam: PE: Constitutional: Well developed, well nourished, no acute distress, non-toxic appearance. HENT: Normocephalic, atraumatic, Eyes: EOMI, conjunctiva normal, no discharge. Neck: Normal range of motion, supple, Cardiovascular: S1/2 present, regular rhythm Lungs & Thorax: Speaking in full sentences, bilateral equal chest rise, no tachypnea or increased work of breathing Abdomen: soft, no tenderness, Skin: Warm, dry, no erythema, no rash. [] Back: No tenderness, no CVA tenderness. [] Extremities: No tenderness, no cyanosis, no lower extremity edema Neurologic: Alert and oriented X 3, normal motor function, normal sensory function, no focal deficits noted. [] Psychologic: Affect normal, judgement normal, mood normal. [] Current Patient Data: Vital Signs: Vital Signs Date Time Temp Pulse Resp B/P (MAP) Pulse Ox O2 Delivery O2 Flow Rate FiO2 03/01/21 02:00 98.6 66 13 115/64 (81) 99 Room Air 98.6 EKG: EKG: [] Radiology/Procedures: Radiology/Procedures: IMAGING REPORT Signed PATIENT: THAI PEREIRA ACCOUNT: [id number] : 2000 LOCATION: ER AGE: 20 SEX: F EXAM STATUS: REG ER ORD. PHYSICIAN: JEANNA MACHADO DO REASON: abd pain, threatened ab PROCEDURE: OB <14 WKS W/TV INDICATION: Reason: abd pain, threatened ab / Spl. Instructions: / History: COMPARISON: February 26, 2021 TECHNIQUE: Grayscale and color ultrasound images uterus and adnexa. Transabdominal and transvaginal images obtained. Transvaginal images were needed to better visualize structures that were limited on transabdominal imaging. FINDINGS: Uterus: 85 x 57 x 49 mm. Intrauterine gestational sac is identified with a pole with crown-rump length of 8 mm and heart beat of 112. Estimated gestational age of 6 weeks and 5 days with estimated due date of October 20, 2021. Small free fluid in the pelvis. Hypoechoic region adjacent to the gestational sac is again seen. Measures approximately 25 x 15 mm. Gestational sac unremarkable. Too early in to adequately assess placenta. The bilateral maternal ovaries are not seen. IMPRESSION: * Intrauterine is identified with a positive heartbeat as well as adjacent hypoechoic structure which could be from subchorionic hematoma. Electronically signed by: John De La Fuente MD (03/01/2021 3:33 AM) DESKTOP- [id number] DICTATED and SIGNED BY: JOHN DE LA FUENTE MD DATE: 03/01/21 [id number] 0 Course & Med Decision Making: Course & Med Decision Making Pertinent Labs and Imaging studies reviewed. (See chart for details) Concern for pelvic pain for the past 4 days in first trimester , beta quant improving. Patient also reports persistent nausea and vomiting. Was prescribed Zofran, not ODT. Will prescribe Diclegis and Zofran ODT. Patient refusing to provide urine sample-denies any dysuria, hematuria, abnormal vaginal discharge. Pelvic exam declined. Complianted of a long ed wait time (hospital on high volume during pandemic with long ed wait time). Patient's blood type is O+. Patient has no vaginal bleeding. Ultrasound consistent with known prior subchorionic hematoma. On reevaluation patient sleeping comfortably in no distress-I have to wake her up a few times for discharge instructions with mother at bedside. Will discharge home with strict ED return precautions were given for severe pain, vaginal bleeding or pyelonephritis including flulike symptoms, dehydration, flank pain and nausea and vomiting.. Encouraged urgent outpatient follow-up with PMD and COMMUNITY WORKER for definitive OB care. Life- threatening processes were considered but are low suspicion at this time, given history, physical exam and ED workup. Pt was educated on all prescription medications and adverse effects. All patient's questions were answered and pt was stable at time of discharge. Life/limb-threatening differential includes but is not limited to, ectopic , septic , sepsis/infection (endometritis, sti/pid, cystitis, pyelonephritis, Patrick's gangrene or necrotizing fasciitis, abscess), ovarian torsion, ruptured hemorrhagic ovarian cyst, endometriosis, ureterolithiasis, thrombophlebitis, hemorrhage/DIC, organ prolapse, abdominal aortic aneurysm, mesenteric ischemia, neoplasm, bowel obstruction or surgical abdomen. I have spoken with the patient and/or caregivers. I explained the patient's condition, diagnoses and treatment plan based on the information available to me at this time. I have answered the patient and/or caregiver's questions and addressed any concerns. The patient and/or caregivers have a good understanding of patient's diagnosis, condition and treatment plan as can be expected at this point. Vital signs have been stable. Patient's condition is stable and appropriate for discharge from the emergency department. Patient will pursue further outpatient evaluation with primary care physician or other designated or consulting physician as outlined in the discharge instructions. The patient and/or caregivers are agreeable to this plan of care and follow-up instructions have been explained in detail. The patient and/or caregivers have received these instructions in written form and have expressed an understanding of the discharge instructions. The patient and/or caregivers are aware that any significant change of condition or worsening of symptoms should prompt immediate return to this or the closest emergency department or call to 911. Aristeo Disclaimer: Aristeo Disclaimer: This electronic medical record was generated, in whole or in part, using a voice recognition dictation system. Departure Departure Impression: Primary Impression: Abdominal pain in Additional Impressions: Nausea and vomiting during Subchorionic hematoma in first trimester Disposition: 01 HOME / SELF CARE / HOMELESS Condition: STABLE Referrals: NO PCP (PCP) Follow-up with your primary care physician in 24 to 48 hours OR FOLLOW UP WITH FAMILY MEDICINE: [address], [address] [place] [address] Patient Instructions: Abdominal Pain During , Hyperemesis Gravidarum, Subchorionic Hematoma Additional Instructions: FOLLOW UP WITH COMMUNITY WORKER: FOR DEFINITIVE MANAGEMENT of and pelvic pain [facility] [address], [address] [place] [address] EMERGENCY DEPARTMENT GENERAL DISCHARGE INSTRUCTIONS Thank you for coming to [facility] Emergency Department (ED) today and trusting us with you care. We trust that you had a positive experience in our Emergency Department. If you wish to speak to the department management, you may call the Director at [phone]. YOUR FOLLOW UP INSTRUCTIONS ARE FOLLOWS: 1. Do you have a private Doctor? If you do not have a private doctor, please ask for a resource list of physicians or clinics that may be able to assist you with follow up care. 2. The Emergency Physicain has interpreted your x-rays. The X-Ray specialist will also review them. If there is a change in the findings, you will be notified in 48 hours when at all possible. 3. A lab test or culture has been done, your results will be reviewed and you will be notified if you need a change in treatment. ADDITIONAL INSTRUCTIONS AND INFORMATION: 1. Your care today has been supervised by a physician who is specially trained in emergency care. Many problems require more than one evaluation for a complete diagnosis and treatment. We recommend that you schedule your follow up appointment as recommended to ensure complete treatment of you illness or injury. If you are unable to obtain follow up care and continue to have a problem, or if your condition worsens, we recommend that you return to the ED. 2. We are not able to safely determine your condition over the phone nor are we able to give sound medical advice over the phone. For these safety reasons, if you call for medical advice we will ask you to come to the ED for further evaluation. 3. If you have any questions regarding these discharge instructions please call the ED at [phone]. SAFETY INFORMATION: In the interest of safety, wellness, and injury prevention; we encourage you to wear your sealbelt, if you smoke; quite smoking, and we encourage family to use a protec tive helmet for bicycling and other sporting events that present an increased risk for head injury. IF YOUR SYMPTOMS WORSEN OR NEW SYMPTOMS DEVELOP, OR YOU HAVE CONCERNS ABOUT YOUR CONDITION; OR IF YOUR CONDITION WORSENS WHILE YOU ARE WAITING FOR YOUR FOLLOW UP APPOINTMENT; EITHER CONTACT YOUR PRIMARY CARE DOCTOR, THE PHYSICIAN WHOSE NAME AND NUMBER YOU WERE GIVEN, OR RETURN TO THE ED IMMEDIATELY. Scripts Pnv Cmb#95/Ferrous Fumarate/Fa ( TABLET) 1 Each Tablet 1 TAB PO DAILY for 30 Days, #30 TAB 0 Refills Prov: VOHS,JEANNA M DO 03/01/21 Doxylamine/Pyridoxine Hcl (DICLEGIS DR 10-10 MG TABLET) 1 Each Tablet.dr 2 TAB PO TID for nausea for 7 Days, #42 TAB 0 Refills Prov: JEANNA MACHADO DO 03/01/21 Ondansetron (ONDANSETRON ODT) 4 Mg Tab.rapdis 1 TAB PO PRN Q6-8HRS, #20 TAB Prov: JEANNA MACHADO DO 03/01/21 EJANNA MACHADO DO Mar 01, 2021 02:33
--- NOTE | 2021-03-01 03:36 | RAD ---
INDICATION: Reason: abd pain, threatened ab / Spl. Instructions: / History: COMPARISON: February 26, 2021 TECHNIQUE: Grayscale and color ultrasound images uterus and adnexa. Transabdominal and transvaginal images obtained. Transvaginal images were needed to better visualize structures that were limited on transabdominal imaging. FINDINGS: Uterus: 85 x 57 x 49 mm. Intrauterine gestational sac is identified with a pole with crown-rump length of 8 mm and heart beat of 112. Estimated gestational age of 6 weeks and 5 days with estimated due date of October 20, 2021. Small free fluid in the pelvis. Hypoechoic region adjacent to the gestational sac is again seen. Measures approximately 25 x 15 mm. Gestational sac unremarkable. Too early in to adequately assess placenta. The bilateral maternal ovaries are not seen. IMPRESSION: * Intrauterine is identified with a positive heartbeat as well as adjacent hypoecho ic structure which could be from subchorionic hematoma. Electronically signed by: Lavell De La Fuente MD (03/01/2021 3:33 AM) DESKTOP-[id number]
[2021-03-01] MEDS ORDERED: DOXY1TAB3 PO (04:25)
[2021-03-01] MEDS ORDERED: ONDA4TAB12 PO (04:25)
[2021-03-01] MEDS ORDERED: metroNIDAZOLE 500 MG TABLET PO ONE (04:30)
[2021-03-01] MEDS ORDERED: PNV1TABL25 PO (04:33)
[2021-03-01 05:00] VITALS: BP 109/59
== END 2021-03-01 05:01 | disposition home or self-care (01) ==
LOC: ER 00:37
DX: O20.8 Other hemorrhage in early pregnancy (principal); R11.2 Nausea with vomiting, unspecified; R10.30 Lower abdominal pain, unspecified; Z3A.01 Less than 8 weeks gestation of pregnancy
CPT/HCPCS: 76801; 76817; 84702; 96361; 96374; 96375; 99284; J2405; J2765; J3415; J7030